=== PATIENT | female | born 2000 | race Hispanic/Latino ===

== ENCOUNTER 2019-03-11 20:00 | Emergency (ER) | payer SELFPAY ==
--- NOTE | 2019-03-11 20:38 | RAD ---
XR Ankle Rt 3 View STANDARD History: Injury Comparison: None. Findings: No acute fracture or malalignment. Small os peroneum. Mild anterior soft tissue swelling. M ild lateral soft tissue swelling. Impression: Anterolateral ankle sprain without acute fracture or malalignment.
[2019-03-11] MEDS ORDERED: HYDROcodone/Acetaminophen 10/325 mg Tablet ONE (21:57)
== END 2019-03-11 22:25 | disposition home or self-care (01) ==
LOC: ERS 20:00
DX: S93.401A Sprain of unspecified ligament of right ankle, initial encounter (principal); X50.9XXA Other and unspecified overexertion or strenuous movements or postures, initial encounter; Y93.61 Activity, american tackle football
CPT/HCPCS: 29515